=== PATIENT | female | born 1930 | race Caucasian/White ===

== ENCOUNTER 2017-01-31 11:56 | Inpatient (IN) | payer MEDICARE, OTHER ==
[~2017-01-31] VITALS: Ht 152.4 cm; Wt 65.4 kg
[~2017-01-31 11:56] MED LIST: /WARF25TA PO; ASPI1TAB PO; Allegra PO; CALCTAB28 PO; COQ-200C PO; CRES5TAB PO; LOSA100T36 PO; MELO7.5T3 PO; METO25TAB PO; MULTTAB4 PO; PERC5TAB PO; ROSUVASTATIN 10 MG TAB (CRESTOR) PO SCH; VERA240C PO; VITA100037 PO; VITACAP8 PO; Vitamin C PO
[2017-01-31] MEDS ORDERED: TOPR50TA PO (12:11)
[2017-01-31] MEDS ORDERED: hydrALAZINE INJ 20 MG/ML VIAL IV ONE (12:45)
[2017-01-31] MEDS ORDERED: NS 500 ML IV ONE (12:45)
--- NOTE | 2017-01-31 13:15 | REP ---
Clinical: Headache and hypertension. Findings: Age-related atrophy and microvascular ischemic changes are appreciated. The ventricles and sulci are symmetric. Gonzalez-white differentiation is maintained. There is no evidence for acute intracranial hemorrhage, mass/mass effect, pathology or infarction. No extra-axial fluid collection. Calvarium is intact. Paranasal sinuses and mastoid air cells are clear. Impression: Age related atrophy and microvascular ischemic changes. No acute intracranial hemorrhage, infarction, or mass/mass effect. Signed by Torito Alford MD 01/31/2017 01:07 P
[2017-01-31 13:21] LABS: BASO % 0.2 % (0.0-1.0); EOS % 0.1 % (0.0-3.0); LARGE UNSTAINED CELL # 0.2 K/mm3 (0.0-0.4); LARGE UNSTAINED CELL % 1.4 % (0.0-4.0); LYMPH # 1.3 K/mm3 (1.5-4.5); LYMPH % 12.5 % (24.0-44.0); MEAN CORPUSCULAR HEMOGLOBIN 28.8 pg (27.0-33.0); MEAN CORPUSCULAR HGB CONC 33.3 g/dl (32.0-36.5); MEAN CORPUSCULAR VOLUME 86.4 fl (80.0-96.0); MONO # 0.5 K/mm3 (0.0-0.8); MONO % 4.5 % (0.0-5.0); NEUTROPHILS # 8.7 K/mm3 (1.8-7.7); NEUTROPHILS % 81.3 % (36.0-66.0); PLATELET COUNT, AUTOMATED 377 k/mm3 (150-450); RED CELL DISTRIBUTION WIDTH 13.6 % (11.5-14.5); WHITE BLOOD COUNT 10.7 K/mm3 (4.0-10.0)
--- NOTE | 2017-01-31 13:25 | REP ---
Portable chest x-ray: Single view. History: Altered mental status. Comparison study: August 18, 2015. Findings: EKG monitoring electrodes overlie the chest. Lungs are well inflated and clear. The pleural angles are sharp. Heart is not enlarged. Pulmonary vasculature is not increased. Impression: No acute disease. Signed by Hardy Valencia MD 01/31/2017 03:50 P
[2017-01-31 13:40] LABS: ALBUMIN 3.5 GM/DL (3.2-5.2); ALBUMIN/GLOBULIN RATIO 1.03 (1.00-1.93); ALKALINE PHOSPHATASE 425 U/L (45-117); ALT/SGPT 274 U/L (12-78); ANION GAP 11 MEQ/L (8-16); AST/SGOT 256 U/L (15-37); BILIRUBIN,DIRECT 0.4 MG/DL (0.0-0.2); BILIRUBIN,TOTAL 0.8 MG/DL (0.2-1.0); BLOOD UREA NITROGEN 31 MG/DL (7-18); CALCIUM LEVEL 9.5 MG/DL (8.8-10.2); CARBON DIOXIDE LEVEL 23 MEQ/L (21-32); CHLORIDE LEVEL 107 MEQ/L (98-107); CREATININE FOR GFR 1.26 MG/DL (0.55-1.02); GLOMERULAR FILTRATION RATE 42.9 (>32); GLUCOSE, FASTING 123 MG/DL (83-110); POTASSIUM SERUM 4.4 MEQ/L (3.5-5.1); SODIUM LEVEL 141 MEQ/L (136-145); TOTAL PROTEIN 6.9 GM/DL (6.4-8.2)
[2017-01-31] MEDS ORDERED: ONDANSETRON 4MG/2ML VIAL (J2405) IV ONE (14:45)
[2017-01-31] MEDS ORDERED: KETOROLAC 30 MG/ML VIAL (J1885) IV ONE (16:15)
[2017-01-31] MEDS ORDERED: FIORICET TAB PO ONE (17:00)
[2017-01-31] MEDS ORDERED: VERA240C PO (17:54)
[2017-01-31] MEDS ORDERED: VITATAB11 PO (17:54)
[2017-01-31] MEDS ORDERED: FEXO60CA PO (17:54)
[2017-01-31] MEDS ORDERED: ASPI1TAB PO (17:54)
[2017-01-31] MEDS ORDERED: CRES5TAB PO (17:54)
[2017-01-31] MEDS ORDERED: LOSA25TA8 PO (17:54)
[2017-01-31] MEDS ORDERED: ACET1TAB17 PO (17:54)
[2017-01-31] MEDS ORDERED: METO1TAB7 PO (17:54)
[2017-01-31] MEDS ORDERED: VITA-121 PO (17:54)
[2017-01-31] MEDS ORDERED: CALC600T31 PO (17:54)
[2017-01-31] MEDS ORDERED: ASCO10003 PO (17:54)
[2017-01-31] MEDS ORDERED: VITMTA PO (17:54)
[2017-01-31] MEDS ORDERED: COQ-100C2 PO (17:54)
[2017-01-31] MEDS ORDERED: ACETAMINOPHEN TAB 650MG DOSE (2X325MG) PO PRN (18:45)
--- NOTE | 2017-01-31 19:09 | HPE ---
DATE OF ADMISSION: 01/31/2017 ATTENDING PHYSICIAN: Dr. Montaño PRIMARY CARE PHYSICIAN: Dr. Chalo Scott After doing my emergency room (ER) consult for Dr. Patel, patients family did not want her discharged and patient elected to stay. She met with [facility] ([facility]). Understands that this is will likely be a non-covered hospitalization. Her blood pressure did go up when talking to [facility] but I think that was situational. Therefore the previously dictated consultation will serve as her admission history and physical. She will be admitted to a medical bed on a [facility] level of care.
--- NOTE | 2017-01-31 19:30 | REPUSA ---
CLINICAL HISTORY: Abdominal pain. TECHNIQUE: Realtime sonographic images were obtained in multiple projections. COMMENTS: The liver is of normal size, parenchyma demonstrates normal echogenicity. No discrete hepatic mass is seen. There is no intra or extrahepatic biliary ductal dilatation. CBD measures 6 mm. The gallbladder is no t identified. There is no abdominal ascites. The right kidney measures 8.9 cm, free of hydronephrosis. IMPRESSION: No acute pathology. Thank you for your kind referral of this patient.
[2017-01-31] MEDS: METOPROLOL SUCC (TopROL XL) 50MG **XL** TAB PO SCH (19:31)
[2017-01-31] MEDS: MULTIVITAMINS/MINERALS THERAP 1 TAB PO SCH (19:32)
[2017-01-31] MEDS: LOSARTAN 25 MG TAB PO SCH (19:33)
[2017-01-31 20:05] VITALS: BP 142/78
--- NOTE | 2017-01-31 20:40 | ER ---
DATE OF CONSULTATION: 01/31/2017 PRIMARY CARE PHYSICIAN: Chalo Scott MD Emergency room (ER) consultation for Dr. Patel. I was asked to see Lucy Alfred for covering for the hospitalist. Dr. Amanda felt she would require hospitalization for altered mental status. She was brought to the emergency room by neighbors, because she did not recognize her neighbors. Her blood pressure was high on admission. She has not been taking her blood pressure medications consistently. After a dose of IV hydralazine, her blood pressure came down, her headache resolved and she is back to normal mental status. In the emergency room, she received Fioricet and 30 mg of IV Toradol (baseline renal insufficiency with a glomerular filtration rate (GFR) of 42 noted). She received a single dose of hydralazine. MEDICATIONS: Her medication list was reviewed. Acetaminophen, vitamin C, multivitamins, aspirin 81 mg daily, vitamin D, Kavitha, losartan 25 mg daily, Toprol XL 50 mg daily, Crestor 5 mg daily, verapamil ER 240 mg daily and some multivitamins. ALLERGIES: SULFA. PHYSICAL EXAMINATION: Blood pressure (BP) is 176/79, pulse 90, respiratory rate 16, 95% oxygen saturation. GENERAL APPEARANCE: Alert, spry and conversant. She is fully oriented. She knows her location, the month, the year. She can name the president and express appropriate opinions concerning recent events. She recognized my name and then pointed out that she was a cousin to my mother, which made her a second cousin to me. Pupils equal and reactive to light. Pharynx benign. Neck is supple. Lungs are clear. Heart Rhythm: 1/6 systolic ejection murmur. Abdomen soft, nontender, no masses. Trace peripheral edema. LABORATORY: White count 10, hemoglobin 6, platelets 377. Sodium 141, potassium 4.4, BUN 31, creatine 1.3, glomerular filtration rate (GFR) 42, AST 256, ALT 274, alkaline phosphatase 425, bilirubin normal. Troponin is normal. Urinalysis looks clear. CT of the head showed age-related changes. Chest x-ray: No active disease. IMPRESSION: 1. Altered mental status probably from mild hypertension. Blood pressure is down and her mental status is back to her baseline. She is quite sharp and there is absolutely no confusion going on whatsoever at this point. I do not think she requires hospitalization for this. Improved social service support in the home might be beneficial and will ask Dr. Scott to see if he can set something up so someone from public health perhaps could check in on her. 2. Abnormal liver function tests. Outpatient work up advised. I discussed this with Lucy and she will be meeting with Dr. Scott to begin work up for abnormal liver function. 3. Chronic kidney disease stage III. Fortunately, she received Ketorolac 30 mg IV in the emergency room. She should have renal function checked as an outpatient to make sure this has not precipitated any increased renal insufficiency. 4. Hypertension. I think the current regimen is sufficient. She just needs to take it with improved compliance.
[2017-01-31] MEDS: ASPIRIN 81 MG ENTERIC TAB PO SCH (20:58)
[2017-01-31] MEDS: FEXOFENADINE 60 MG TAB PO SCH (20:58)
[2017-01-31] MEDS: VITAMIN B COMPLEX/VIT C CAP PO SCH (20:58)
[2017-01-31] MEDS: ASCORBIC ACID 500 MG TAB PO SCH (20:58)
[2017-01-31] MEDS: VITAMIN D 1,000 INTERNATIONAL UNITS TABLET PO SCH (20:58)
[2017-01-31] MEDS: ENOXAPARIN 40 MG/0.4 ML SYRINGE (J1650) SC SCH (20:59)
[2017-01-31] MEDS: VERAPAMIL 120 MG SR TAB PO SCH (21:02)
[2017-02-01 04:00] VITALS: BP 126/73
--- NOTE | 2017-02-01 07:50 | ECGEPIP ---
Stationary ECG Study [facility] - ED Test Date: 2017-01-31 Pat Name: TERESA NATHAN Department: Room: - Gender: F [employer] Operator: JT : [id number] Requested By: STACY Woods Order Number: [id number] Reading MD: Renuka Barnard Measurements Intervals [place] Rate: 87 P: 24 ME: 152 QRS: 6 QRSD: 89 T: 12 QT: 354 QTc: 427 Interpretive Statements SINUS RHYTHM Electronically Signed On 02-01-2017 7:50:08 EDT by Renuka Barnard
[2017-02-01] MEDS: ASCORBIC ACID 500 MG TAB PO SCH (08:18)
[2017-02-01] MEDS: VERAPAMIL 120 MG SR TAB PO SCH (08:18)
[2017-02-01] MEDS: VITAMIN B COMPLEX/VIT C CAP PO SCH (08:18)
[2017-02-01] MEDS: MULTIVITAMINS/MINERALS THERAP 1 TAB PO SCH (08:18)
[2017-02-01] MEDS: LOSARTAN 25 MG TAB PO SCH (08:19)
[2017-02-01] MEDS: FEXOFENADINE 60 MG TAB PO SCH (08:19)
[2017-02-01] MEDS: METOPROLOL SUCC (TopROL XL) 50MG **XL** TAB PO SCH (08:19)
[2017-02-01] MEDS: ASPIRIN 81 MG ENTERIC TAB PO SCH (08:19)
[2017-02-01] MEDS: VITAMIN D 1,000 INTERNATIONAL UNITS TABLET PO SCH (08:19)
[2017-02-01] MEDS: FOLIC ACID 1 MG TAB PO SCH (08:28)
[2017-02-01] MEDS: THIAMINE 100 MG TAB PO SCH (08:28)
[2017-02-01 09:27] LABS: MEAN CORPUSCULAR HGB CONC 33.1 g/dl (32.0-36.5); MEAN CORPUSCULAR VOLUME 87.6 fl (80.0-96.0); RED CELL DISTRIBUTION WIDTH 13.8 % (11.5-14.5); WHITE BLOOD COUNT 7.7 K/mm3 (4.0-10.0)
[2017-02-01 09:36] LABS: INR 1.05
[2017-02-01] MEDS ORDERED: LOSARTAN 25 MG TAB PO ONE (09:45)
[2017-02-01 10:09] LABS: ALBUMIN 3.4 GM/DL (3.2-5.2); BILIRUBIN,TOTAL 0.5 MG/DL (0.2-1.0); BLOOD UREA NITROGEN 32 MG/DL (7-18)
[2017-02-01 10:22] LABS: ALT/SGPT 194 U/L (12-78); ANION GAP 14 MEQ/L (8-16); AST/SGOT 110 U/L (15-37); CARBON DIOXIDE LEVEL 23 MEQ/L (21-32); CHLORIDE LEVEL 105 MEQ/L (98-107); CHOLESTEROL LEVEL 187 MG/DL (<200); GLOMERULAR FILTRATION RATE 35.1 (>32); GLUCOSE, FASTING 146 MG/DL (83-110); MAGNESIUM LEVEL 1.7 MG/DL (1.8-2.4); PERCENT SATURATION 12.6 % (13.2-45.0); POTASSIUM SERUM 4.7 MEQ/L (3.5-5.1); SODIUM LEVEL 142 MEQ/L (136-145); TOTAL IRON BINDING CAPACITY 342 UG/DL (250-450); TRIGLYCERIDES LEVEL 229 MG/DL (<150)
[2017-02-01 10:28] LABS: ALBUMIN/GLOBULIN RATIO 1.03 (1.00-1.93); ALKALINE PHOSPHATASE 376 U/L (45-117); FERRITIN 121 NG/ML (8-252); T UPTAKE 36 % (30-39); TOTAL PROTEIN 6.7 GM/DL (6.4-8.2)
[2017-02-01 11:00] LABS: GAMMA GLUTAMYLTRANSPEPTIDASE 1332 U/L (5-55)
[2017-02-01] MEDS ORDERED: LR 1,000 ML IV SCH (12:30)
[2017-02-01 14:00] VITALS: BP 140/57
[2017-02-01] MEDS ORDERED: MAG SULF 1GM/100ML (MAG RUN) 1 GM in APPROPRIATE DILUENT 1 EA IV ONE (16:15)
[2017-02-01 16:28] VITALS: BP 134/66
--- NOTE | 2017-02-01 18:39 | IPNPDOC ---
Date Seen The patient was seen on 02/01/17. Progress Note SUBJECTIVE: Patient is a 86-year-old female with confusion and hypertensive urgency. Patient had not been taking her medications as prescribed. She is evaluated at bedside this morning. She states she feels better. Denies chest pain, blurry vision, peripheral edema. She is alert and conversant during my evaluation. Blood pressure improved with some minor adjustments to patient's home medications. During my follow-up evaluation patient states that she has made the decision to enter alternate level of care at the recommendation of her son. I have met with his son and [id number] as well as with PFS and have discussed that further investigation into this will only begin on Saturday. Physical therapy evaluated patient and recommended home with services. The son informs me that they do not have services currently set up, but that he plans on investigating further services on Saturday. Patient' s kidney function has mildly worsened with a creatinine going from 1.1 to 1.5. Intravenous fluid resuscitation has been initiated. Patient also has some transaminitis and thus far hepatitis panel was negative. GGT was elevated. Will continue to trend this. Patient denies alcohol dependence. CRP is elevated as well. We'll continue to trend this as well. OBJECTIVE PHYSICAL EXAMINATION: VITAL SIGNS: Please see below. GENERAL: Well-nourished, well-developed elderly female, appropriately dressed, appears stated age, in no acute distress HEENT: Atraumatic, normocephalic, PERRL, EOMI, oral mucosa appears pink and moist, nasal septum appears midline, nares are patent, wears spectacles CARDIOVASCULAR: Regular rate and rhythm, normal S1 and S2, grade 2/6 systolic murmur appreciated over the left sternal border third intercostal space RESPIRATORY: Clear to auscultation bilaterally, adequate inspiratory and expiratory airway excursion, no wheeze, rhonchi, crackles ABDOMINAL: Soft, flat, nontender, nondistended, bowel sounds appreciated EXTREMITIES: Peripheral pulses appreciated bilaterally, equal, symmetrical, +2/4 , without edema NEUROLOGICAL: Cranial nerves II-XII grossly intact PSYCHOLOGICAL: Alert and conversant, pleasant LABORATORY DATA: Please see below. MICROBIOLOGY: Please see below. IMAGING: CT head without contrast IMPRESSION: Age related atrophy and microvascular ischemic changes. No acute intracranial hemorrhage, infarction, or mass/mass effect. Portable chest x-ray IMPRESSION: No acute disease. Liver ultrasound IMPRESSION: No acute pathology. Renal ultrasound IMPRESSION: Pending. DVT prophylaxis ordered?: Lovenox 40 mg daily at bedtime. ASSESSMENT AND PLAN: This is a 86-year-old female with confusion and hypertensive urgency. PROBLEMS: 1. Altered mental status: Resolved. 2. Hypertensive urgency: Adjusted patient's losartan to 50 mg daily. Continue patient on verapamil 240 mg daily and metoprolol 50 mg daily. Blood pressure is currently controlled. Continue to monitor vital signs. 3. Acute kidney injury: Creatinine went from 1.26 to 1.50. Have initiated lactated Ringer's at 100 mLs per hour. Obtaining renal ultrasound. 4. Hypomagnesemia: Provided replenishment. 5. Transaminitis: AST and ALT appeared to be decreasing. GGT was elevated. Liver ultrasound was negative. No acute abdominal complaints at this time. Monitor liver profile and GGT. Consider outpatient follow-up with Dr. Scott. 6. Iron deficiency anemia: Started patient on ferrous sulfate. Continue with vitamin C. DISPOSITION: Both social studies teacher and patient's son are looking into alternate levels care. Further investigations will continue on Saturday. Patient did have a increase in her creatinine. Initiated fluids. Patient is being admitted to the hospital. VS, I&O, 24H, [facility] Vital Signs/I&O Vital Signs Date Time Temp Pulse Resp B/P (MAP) Pulse Ox O2 Delivery O2 Flow Rate FiO2 02/01/17 16:28 97.9 65 18 134/66 (88) 97 Room Air I&O- Last 24 Hours up to 6 AM 02/01/17 06:00 Intake Total 500 ml Output Total 100 ml Balance 400 ml Laboratory Data 24H LABS Laboratory Tests 2 02/01/17 08:52: 02/01/17 08:55: Erythrocyte Sedimentation Rate 55H, Prothrombin Time 13.8, Prothromb Time International Ratio 1.05, Anion Gap 14, Glomerular Filtration Rate 35.1, Blood Urea Nitrogen 32H, Creatinine 1.50H, Sodium Level 142, Potassium Level 4.7, Chloride Level 105, Carbon Dioxide Level 23, Calcium Level 9.0, Aspartate Amino Transf (AST/SGOT) 110H, Alanine Aminotransferase (ALT/SGPT) 194H, Gamma Glutamyl Transpeptidase 1332H, Total Creatine Kinase 85, Alkaline Phosphatase 376H, Total Bilirubin 0.5, Triglycerides Level 229H, LDL Cholesterol 82.2, Total Protein 6.7, Albumin 3.4, Magnesium Level 1.7L, Iron Level 43L, Total Iron Binding Capacity 342, Transferrin % Saturation 12.6L, Ferritin 121, Ammonia 22, Creatine Kinase MB 1.2, Creatine Kinase MB Relative Index 1.41, Troponin I < 0.02, C-Reactive Protein, Quantitative 6.84H, Albumin/Globulin Ratio 1.03, Total Cholesterol 187, Non-HDL Cholesterol (LDL + VLDL) 128, Total HDL Cholesterol 59, Cholesterol/HDL Ratio 3.169, Thyroid Stimulating Hormone ( TSH) 1.970, Free Thyroxine Index 3.2, Thyroxine (T4) 9.0, Triiodothyronine (T3) Uptake 36, Acetaminophen Level < 2.0L, Hepatitis A IgM Antibody NEGATIVE, Hepatitis B Surface Antigen NEGATIVE, Hepatitis B Core IgM Antibody NEGATIVE, Hepatitis C Antibody Index 0.2 CBC/BMP Laboratory Tests 02/01/17 08:55 Red Blood Count 3.88 L, Mean Corpuscular Volume 87.6, Mean Corpuscular Hemoglobin 29.0, Mean Corpuscular Hemoglobin Concent 33.1, Red Cell Distribution Width 13.8, Calcium Level 9.0, Aspartate Amino Transf (AST/SGOT) 110 H, Alanine Aminotransferase (ALT/SGPT) 194 H, Gamma Glutamyl Transpeptidase 1332 H, Total Creatine Kinase 85, Alkaline Phosphatase 376 H, Total Bilirubin 0.5, Triglycerides Level 229 H, LDL Cholesterol 82.2, Total Protein 6.7, Albumin 3.4 Microbiology Microbiology 01/31/17 Urine Culture - Final, Complete GME ATTESTATION GME ATTESTATION My preceptor for this patient encounter was physically present in the building during the encounter and was fully available. As needed, all aspects of the patient interview, examination, medical decision making process, and medical care plan development were reviewed and approved by the preceptor. Preceptor is aware and concurs with the plan as stated in the body of this note and will attest to such by his/her cosignature. ATTENDING NOTE I have both independently examined this patient as well as reviewed the note. I have discussed in detail with the resident the findings and plan of treatment as documented in the residents note. I will continue to follow the patient and offer further guidance to the patients care as necessary during this hospital stay. FARIDA Monge MD Feb 01, 2017 18:39 CASSI COLEMAN MD Feb 18, 2017 18:48
[2017-02-01] MEDS: ENOXAPARIN 40 MG/0.4 ML SYRINGE (J1650) SC SCH (21:27)
[2017-02-01 22:00] VITALS: BP 148/68
[2017-02-02 06:00] VITALS: BP 143/76
[2017-02-02 06:34] LABS: MEAN CORPUSCULAR HEMOGLOBIN 28.9 pg (27.0-33.0); MEAN CORPUSCULAR VOLUME 87.5 fl (80.0-96.0); RED CELL DISTRIBUTION WIDTH 13.9 % (11.5-14.5)
[2017-02-02 06:48] LABS: CALCIUM LEVEL 9.6 MG/DL (8.8-10.2); CREATININE FOR GFR 1.42 MG/DL (0.55-1.02); GLOMERULAR FILTRATION RATE 37.3 (>32); MAGNESIUM LEVEL 2.1 MG/DL (1.8-2.4); POTASSIUM SERUM 4.2 MEQ/L (3.5-5.1)
--- NOTE | 2017-02-02 08:01 | REP ---
Clinical: Acute renal insufficiency. Technique: Real time navarrete scale ultrasound examination using curved array transducer. Findings: The bilateral kidneys are normal in reniform shape with cortical thinning and increased central sinus fat suggesting chronic medical renal disease. There is no evidence for hydronephrosis, nephrolithiasis, cystic or renal mass lesion. No perinephric fluid collections are identified. The bladder is collapsed and poorly evaluated. Right kidney measures 8.6 x 5.2 x 4.1 cm. Left kidney measures 9.4 x 5.7 x 4.7 cm. Impression: Evidence for chronic medical renal disease. No hydronephrosis. Signed by Torito Alford MD 02/02/2017 07:53 A
[2017-02-02] MEDS ORDERED: FERROUS SULFATE 325MG TAB PO SCH (09:00)
[2017-02-02] MEDS ORDERED: LOSARTAN 50 MG TAB PO SCH (09:00)
[2017-02-02] MEDS: ASCORBIC ACID 500 MG TAB PO SCH (09:42)
[2017-02-02] MEDS: VERAPAMIL 120 MG SR TAB PO SCH (09:43)
[2017-02-02] MEDS: FOLIC ACID 1 MG TAB PO SCH (09:43)
[2017-02-02] MEDS: THIAMINE 100 MG TAB PO SCH (09:43)
[2017-02-02] MEDS: VITAMIN B COMPLEX/VIT C CAP PO SCH (09:43)
[2017-02-02] MEDS: VITAMIN D 1,000 INTERNATIONAL UNITS TABLET PO SCH (09:44)
[2017-02-02] MEDS: FEXOFENADINE 60 MG TAB PO SCH (09:44)
[2017-02-02] MEDS: MULTIVITAMINS/MINERALS THERAP 1 TAB PO SCH (09:44)
[2017-02-02] MEDS: ASPIRIN 81 MG ENTERIC TAB PO SCH (09:44)
[2017-02-02 09:47] VITALS: BP 143/76
[2017-02-02] MEDS: METOPROLOL SUCC (TopROL XL) 50MG **XL** TAB PO SCH (09:47)
[2017-02-02] MEDS ORDERED: LOSA50TA20 PO (11:13)
[2017-02-02 14:00] VITALS: BP 159/70
--- NOTE | 2017-02-02 14:31 | DS.PDOC ---
Discharge Summary General Date of Admission Feb 01, 2017 at 12:20 Date of Discharge 02/02/2017 Primary Care Physician: Sonia Attending Physician: HE Discharge Summary PROCEDURES PERFORMED DURING STAY: None. ADMITTING DIAGNOSES: 1. Altered mental status. 2. Abnormal liver function tests. 3. Chronic kidney disease, stage III. 4. Hypertension. DISCHARGE DIAGNOSES: 1. Hypertensive urgency. 2. Transaminitis. 3. Hypomagnesemia. 4. Iron deficiency anemia. 5. Acute kidney injury. COMPLICATIONS/CHIEF COMPLAINT: Hypertensive Urgency. HISTORY OF PRESENT ILLNESS: Admitting attending was consulted by emergency room physician for evaluation of Ms. Alfred. Emergency room physician felt that patient would benefit from hospitalization secondary to altered mental status. She was brought to the emergency room by neighbors, because she did not recognize her neighbors. Her blood pressure was high on admission. She has not been taking her blood pressure medications consistently. After a dose of IV hydralazine, her blood pressure came down, her headache resolved and she is back to normal mental status. In the emergency room, she received Fioricet and 30 mg of IV Toradol (baseline renal insufficiency with a glomerular filtration rate (GFR) of 42 noted). She received a single dose of hydralazine. HOSPITAL COURSE: Patient was initially admitted under observational status. Status was later changed to inpatient admission. Blood pressure began to stabilize after adjusting patient's losartan to 50 mg daily. Renal ultrasound was negative. Patient was advised to follow up with primary care provider regarding elevated liver enzymes. Liver ultrasound was negative. Patient's kidney function mildly worsened and she was kept overnight and given a liter bolus of fluid. Kidney function did improve overnight. Blood pressure stabilized. A question was raised by family that patient was not stable enough to live independently any longer. Patient is confided in me that she thinks she would benefit from being in an alternative level of care which is something that her son is wanting for her safety. Home health services were contacted during patient's overnight stay and services may start in the home as early as Saturday or Saturday next week. Son is also going to look into alternative avenues for in-home care. Patient improved overnight and appeared to return to baseline. She is stable at time of discharge. DISCHARGE MEDICATIONS: Please see below. ALLERGIES: Please see below. PHYSICAL EXAMINATION ON DISCHARGE: VITAL SIGNS: Please see below. GENERAL: Well-nourished, well-developed elderly female, appropriately dressed, appears stated age, in no acute distress HEENT: Atraumatic, normocephalic, PERRL, EOMI, oral mucosa appears pink and moist, nasal septum appears midline, nares are patent, wears spectacles NECK: Supple, trachea midline, no lymphadenopathy appreciated CARDIOVASCULAR: Regular rate and rhythm, normal S1 and S2, grade 2/6 systolic murmur appreciated over the left sternal border third intercostal space RESPIRATORY: Clear to auscultation bilaterally, adequate inspiratory and expiratory airway excursion, no wheeze, rhonchi, crackles ABDOMINAL: Soft, flat, nontender, nondistended, bowel sounds appreciated EXTREMITIES: Peripheral pulses appreciated bilaterally, equal, symmetrical, +2/4 , without edema SKIN: Warm, dry, intact, without edema NEUROLOGICAL: Cranial nerves II-XII grossly intact PSYCHOLOGICAL: Alert and conversant, pleasant LABORATORY DATA: Please see below. IMAGING: CT head without contrast IMPRESSION: Age related atrophy and microvascular ischemic changes. No acute intracranial hemorrhage, infarction, or mass/mass effect. Portable chest x-ray IMPRESSION: No acute disease. Liver ultrasound IMPRESSION: No acute pathology. Renal ultrasound IMPRESSION: Evidence for chronic medical renal disease. No hydronephrosis. PROGNOSIS: Stable. ACTIVITY: As tolerated. DIET: DASH. DISCHARGE PLAN: Follow-up with Dr. Scott in 7-10 days regarding abnormal liver enzymes. Increase urinary daily dose to 50 mg. Stopped taking Crestor. Reconciliate chronic medications with primary care provider. Return to the nearest emergency Department if symptoms persist or worsen. DISPOSITION: Home with services. DISCHARGE INSTRUCTIONS: 1. Follow-up with Dr. Scott in 7-10 days. ITEMS TO FOLLOWUP ON ON OUTPATIENT: 1. Elevated liver enzymes. 2. Hypertension. 3. Home health services. DISCHARGE CONDITION: Stable. TIME SPENT ON DISCHARGE: Greater than 30 minutes. Vital Signs/I&Os Vital Signs Date Time Temp Pulse Resp B/P (MAP) Pulse Ox O2 Delivery O2 Flow Rate FiO2 02/02/17 09:47 79 143/76 02/02/17 09:00 Room Air 02/02/17 06:00 97.6 18 96 I&O- Last 24 Hours up to 6 AM 02/02/17 06:00 Intake Total 1720 ml Output Total 100 ml Balance 1620 ml Laboratory Data Labs 24H Laboratory Tests 2 02/02/17 05:47: Anion Gap 12, Glomerular Filtration Rate 37.3, Blood Urea Nitrogen 43H, Creatinine 1.42H, Sodium Level 144, Potassium Level 4.2, Chloride Level 111H, Carbon Dioxide Level 21, Calcium Level 9.6, Magnesium Level 2.1, Gamma Glutamyl Transpeptidase 1378H, C-Reactive Protein, Quantitative 3.51H CBC/BMP Laboratory Tests 02/02/17 05:47 Red Blood Count 3.74 L, Mean Corpuscular Volume 87.5, Mean Corpuscular Hemoglobin 28.9, Mean Corpuscular Hemoglobin Concent 33.0, Red Cell Distribution Width 13.9, Calcium Level 9.6 Microbiology Microbiology 01/31/17 Urine Culture - Final, Complete Discharge Medications Scheduled (Coq-10) 100 Mg Cap, 100 MG PO DAILY, (Reported) Ascorbic Acid (Ascorbic Acid) 1,000 Mg Tab, 1,000 MG PO DAILY, (Reported) Aspirin (Aspirin 81) 81 Mg Tab, 81 MG PO DAILY, (Reported) B1/B2/B3/B5/B6 (Vitamin B Complex) 1 Tab Tab, 1 TAB PO DAILY, (Reported) Calcium (Calcium) 600 Mg Tab, 600 MG PO DAILY, (Reported) Cholecalciferol (Vitamin D-3) 1,000 Unit Tab, 1,000 UNIT PO DAILY, (Reported) Fexofenadine HCl (Fexofenadine HCl) 60 Mg Tab, 60 MG PO DAILY, (Reported) Losartan Potassium (Losartan Potassium) 50 Mg Tab, 50 MG PO DAILY Metoprolol Succinate (Metoprolol Succinate ER) 50 Mg Tab, 50 MG PO DAILY, ( Reported) Multivitamins *[facility] STOCKED* (Thera M Plus *[facility] STOCKED*) 1 Tab Tab, 1 TAB PO DAILY, (Reported) Verapamil HCl (Verapamil HCl ER) 240 Mg Cap, 240 MG PO DAILY, (Reported) Scheduled PRN Acetaminophen (Acetaminophen) 325 Mg Tab, 650 MG PO Q6H PRN for PAIN, (Reported) Allergies Coded Allergies: Sulfa Antibiotics (Unverified Allergy, Unknown, UNKNOWN, 01/31/17) GME ATTESTATION GME ATTESTATION My preceptor for this patient encounter was physically present in the building during the encounter and was fully available. As needed, all aspects of the patient interview, examination, medical decision making process, and medical care plan development were reviewed and approved by the preceptor. Preceptor is aware and concurs with the plan as stated in the body of this note and will attest to such by his/her cosignature. ATTENDING NOTE I have both independently examined this patient as well as reviewed the note. I have discussed in detail with the resident the findings and plan of treatment as documented in the residents note. I will continue to follow the patient and offer further guidance to the patients care as necessary during this hospital stay. FARIDA Monge MD-Mansoor Feb 02, 2017 14:31 CASSI COLEMAN MD Feb 18, 2017 18:52
[2017-02-03 00:06] LABS: ENDOMYSIAL ABY IgA Negative (Negative)
== END 2017-02-02 14:35 | disposition home health service (06) | DRG 305 ==
LOC: M ED 11:56 → M ED INP 18:37 → M MS4PR 20:10 → OBSVTOIN 02-01 12:20 → M MSPAV 02-01 16:26
PROVIDERS: ADMIT Family Medicine; ATTEND Hospitalist
DX: I16.0 Hypertensive urgency (principal); I12.9 Hypertensive chronic kidney disease with stage 1 through stage 4 chronic kidney disease, or unspecified chronic kidney disease; N18.3 Chronic kidney disease, stage 3 (moderate); R94.5 Abnormal results of liver function studies; R41.82 Altered mental status, unspecified; D50.9 Iron deficiency anemia, unspecified; E83.42 Hypomagnesemia; Z79.82 Long term (current) use of aspirin; Z79.899 Other long term (current) drug therapy

== ENCOUNTER → 2017-02-12 | Outpatient (REF) | payer MEDICARE, OTHER ==
[~2017-02-12] MED LIST changes: +ACET1TAB17 PO; +ASCO10003 PO; +CALC600T31 PO; +COQ-100C2 PO; +FEXO60CA PO; +LOSA25TA8 PO; +LOSA50TA20 PO; +METO1TAB7 PO; -ROSUVASTATIN 10 MG TAB (CRESTOR) PO SCH; +TOPR50TA PO; +VITA-121 PO; +VITATAB11 PO; +VITMTA PO
[2017-02-12 16:41] LABS: ALBUMIN 3.4 GM/DL (3.2-5.2); ALBUMIN/GLOBULIN RATIO 1.1 (1.00-1.93); BILIRUBIN,TOTAL 0.5 MG/DL (0.2-1.0); CALCIUM LEVEL 8.8 MG/DL (8.8-10.2); CREATININE FOR GFR 1.41 MG/DL (0.55-1.02); GLOMERULAR FILTRATION RATE 37.6 (>32); POTASSIUM SERUM 4.4 MEQ/L (3.5-5.1); TOTAL PROTEIN 6.5 GM/DL (6.4-8.2)
== END ==
LOC: M LAB REF 15:08
PROVIDERS: ATTEND Nurse Practitioner Adult Health
DX: N18.3 Chronic kidney disease, stage 3 (moderate) (principal)

== ENCOUNTER 2017-04-05 16:11 | Emergency (ER) | payer MEDICARE, OTHER ==
[~2017-04-05] VITALS: Ht 152.4 cm; Wt 66.8 kg
--- NOTE | 2017-04-05 18:32 | REP ---
CT BRAIN WITHOUT IV CONTRAST: CT brain is performed without IV contrast. Comparison made with prior study of 01/31/2017. Once again there is a moderate degree of atrophy. There is no midline shift. Gonzalez/white differentiation is well maintained. There is no acute hemorrhage. There is no extra-axial fluid collection. No mass effect is seen. There is some hyperostosis frontalis interna. No skull fracture is seen. Vascular calcifications are seen in the carotid siphons. There is a tiny amount of fluid in the sphenoid sinus. IMPRESSION: No evidence of acute bleed or fracture. Atrophy and vascular calcifications. Signed by Sebastien Gonzalez MD 04/05/2017 08:11 P
--- NOTE | 2017-04-05 18:34 | REP ---
CT CERVICAL SPINE: CT cervical spine is performed in the axial plane. Sagittal and coronal reconstruction images are performed. There is no evidence of compression fracture. There is normal cervical lordosis. There is no prevertebral soft tissue swelling. There is mild to moderate diffuse spurring with mild diffuse disc space narrowing and subchondral sclerosis. No hematoma is seen in the spinal canal. IMPRESSION: Diffuse degenerative changes. No fracture or dislocation. Signed by Sebastien Gonzalez MD 04/05/2017 08:11 P
[2017-04-05 18:45] VITALS: BP 168/83
== END 2017-04-05 18:56 | disposition home or self-care (01) ==
LOC: M ED 16:11 → EDBD 16:11 → M ED 18:56
DX: S01.91XA Laceration without foreign body of unspecified part of head, initial encounter (principal); W01.198A Fall on same level from slipping, tripping and stumbling with subsequent striking against other object, initial encounter; Y92.481 Parking lot as the place of occurrence of the external cause; Y93.89 Activity, other specified; Y99.8 Other external cause status; I10 Essential (primary) hypertension; E78.00 Pure hypercholesterolemia, unspecified; Z79.899 Other long term (current) drug therapy; Z79.82 Long term (current) use of aspirin; Z88.1 Allergy status to other antibiotic agents; Z88.2 Allergy status to sulfonamides; Z87.81 Personal history of (healed) traumatic fracture; Z96.9 Presence of functional implant, unspecified

== ENCOUNTER → 2017-04-15 | Outpatient (REF) | payer MEDICARE, OTHER ==
[2017-04-15 20:21] LABS: PERCENT SATURATION 15.5 % (13.2-45.0)
[2017-04-15 20:40] LABS: FOLATE 22.9 NG/ML
== END ==
LOC: M LAB REF 18:31
PROVIDERS: ATTEND Internal Medicine
DX: D64.9 Anemia, unspecified (principal)

== ENCOUNTER → 2017-05-28 | Outpatient (REF) | payer MEDICARE, OTHER | LOC: M LAB REF 20:18 | DX: R74.0 Nonspecific elevation of levels of transaminase and lactic acid dehydrogenase [LDH] (principal); G60.8 Other hereditary and idiopathic neuropathies | CPT/HCPCS: 86255 ==

== ENCOUNTER → 2018-04-17 | Outpatient (REF) | payer MEDICARE, OTHER ==
[2018-04-18 14:35] LABS: FERRITIN 23 NG/ML (8-252); IRON (FE) 42 UG/DL (50-170); PERCENT SATURATION 10.2 % (13.2-45.0); TOTAL IRON BINDING CAPACITY 412 UG/DL (250-450)
== END ==
LOC: M LAB REF 13:20
DX: D64.9 Anemia, unspecified (principal); N18.3 Chronic kidney disease, stage 3 (moderate)
CPT/HCPCS: 83550

== ENCOUNTER → 2018-04-21 | Outpatient (REF) | payer MEDICARE, OTHER ==
[2018-04-21 12:53] LABS: RETIC HEMOGLOBIN EQUIVALENT 31.7 pg (24-36); RETICULOCYTE # 75.5 10^9/L (17-77); RETICULOCYTE % 2.6 % (0.5-1.5)
[2018-04-22 08:53] LABS: IMMEDIATE SPIN CROSSMATCH 1 2
== END ==
LOC: M LAB REF 12:00
DX: D64.9 Anemia, unspecified (principal)
CPT/HCPCS: 85046

== ENCOUNTER 2018-04-22 06:37 | Outpatient (CLI) | payer MEDICARE, OTHER ==
[2018-04-22] MEDS: ACETAMINOPHEN TAB 650MG DOSE (2X325MG) PO (06:54)
[2018-04-22] MEDS: diphenhydrAMINE 25 MG CAP PO (06:55)
== END 2018-04-22 11:30 | disposition home or self-care (01) ==
LOC: M INFU 06:37
DX: D64.9 Anemia, unspecified (principal); R42 Dizziness and giddiness; I13.10 Hypertensive heart and chronic kidney disease without heart failure, with stage 1 through stage 4 chronic kidney disease, or unspecified chronic kidney disease; N18.3 Chronic kidney disease, stage 3 (moderate)
CPT/HCPCS: 36430